=== PATIENT | female | born 1940 | race Hispanic/Latino ===

== ENCOUNTER 2022-11-05 13:40 | Emergency (ER) | payer MEDICARE, BC, OTHER ==
[~2022-11-05] VITALS: Ht 165.1 cm; Wt 77.1 kg
[2022-11-05 15:21] VITALS: O2SAT 95
== END 2022-11-05 16:09 | disposition home or self-care (01) ==
LOC: FSED 13:46
DX: S20.212A Contusion of left front wall of thorax, initial encounter (principal); W18.39XA Other fall on same level, initial encounter; Y93.01 Activity, walking, marching and hiking; Y92.89 Other specified places as the place of occurrence of the external cause; I10 Essential (primary) hypertension; E78.5 Hyperlipidemia, unspecified; I25.2 Old myocardial infarction; Z86.718 Personal history of other venous thrombosis and embolism; Z85.3 Personal history of malignant neoplasm of breast
CPT/HCPCS: 71250; 74176; 99283